=== PATIENT | female | born 1990 ===

== ENCOUNTER 2018-07-11 16:41 | Inpatient (IN) | payer OTHER ==
[~2018-07-11] VITALS: Ht 165.1 cm; Wt 63.7 kg
[2018-07-11] MEDS ORDERED: KETOROLAC TROMETHAMINE INJ 30 MG/ML VIAL ONE (17:24)
[2018-07-11] MEDS ORDERED: HYDROMORPHONE 1 MG/1 ML DISP.SYRIN ONE (17:24)
[2018-07-11] MEDS ORDERED: ONDANSETRON HCL/PF 4 MG/2 ML VIAL ONE (17:24)
[2018-07-11] MEDS ORDERED: KETOROLAC TROMETHAMINE INJ 30 MG/ML VIAL IV ONE (17:30)
[2018-07-11] MEDS ORDERED: HYDROMORPHONE INJ 2 MG/ML DISP.SYRIN IV ONE (17:30)
[2018-07-11] MEDS ORDERED: ONDANSETRON HCL/PF 4 MG/2 ML VIAL IVP ONE (17:30)
[2018-07-11] MEDS ORDERED: IV NS 0.9% 1,000 ML BAG IV ONE (17:30)
--- NOTE | 2018-07-11 17:41 | NUR ---
PT BIB FAMILY C/O RIGHT FLANK PAIN , CHILLS AND FEVER X1 DAY SEEN AT [facility]RGENT [facility]ARE YESTERDAY AND BEEN ADVICED TO GET US OF KIDNEYS. ALERT AND ORIENTED X 4, VERBALLY RESPONSIVE AND ABLE TO MAKE NEEDS KNOWN. ON ROOM AIR, BREATHING EVENLY ANDUNLABORED. IV ACCESS INITIATED. KEPT COMFORTABLE, WILL CONTINUE TO MONITOR ACCORDINGLY.
--- NOTE | 2018-07-11 17:42 | NUR ---
URINE COLLECTED AND SENT TO LAB.
[2018-07-11 17:46] LABS: BASOPHILS % (AUTO) 0.1 % (0.0-2.0); HEMATOCRIT 33 % (33-45); HEMOGLOBIN 10.4 g/dL (11.5-14.8); LYMPHOCYTES # (AUTO) 0.5 /CMM (0.8-4.8); MEAN CORPUSCULAR HGB CONC 31 g/dl (31.0-36.0); MEAN CORPUSCULAR VOLUME 75 fL (82-100); MONOCYTES # (AUTO) 0.9 /CMM (0.1-1.30); MONOCYTES % (AUTO) 5.7 % (2.0-12.0); NEUTROPHILS # (AUTO) 14.5 /CMM (1.8-8.9); NEUTROPHILS % (AUTO) 91.2 % (43.0-81.0); PLATELET COUNT (AUTO) 231 /CMM (150-450); RED BLOOD CELL COUNT(AUTO) 4.42 MIL/uL (4.0-5.2); WHITE BLOOD COUNT (AUTO) 15.9 K/uL (4.3-11.0)
[2018-07-11 17:49] LABS: APPEARANCE,URINE Clear (CLEAR); BILIRUBIN,URINE SMALL (NEGATIVE); BLOOD, URINE Large Ery/uL (NEGATIVE); COLOR,URINE Yellow (YELLOW); KETONES,URINE 15 (NEGATIVE); LEUKOCYTE ESTERASE ,URINE Negative (NEGATIVE); NITRITE, URINE Negative (NEGATIVE); PH,URINE 5.5 (5.0-8.0); PROTEIN,URINE 100 mg/dl (NEGATIVE); UGLUCOSE Negative (NEGATIVE); UROBILINOGEN,URINE 0.2 EU/dL (0.2)
[2018-07-11 18:00] LABS: ALBUMIN 3.3 g/dL (3.4-5.0); BILIRUBIN,DIRECT 0.1 mg/dL (0.0-0.2); BILIRUBIN,TOTAL 0.4 mg/dL (0.2-1.0); CALCIUM, SERUM 8.3 mg/dL (8.5-10.1); CREATININE 0.9 mg/dL (0.6-1.3); POTASSIUM 3.1 mmol/L (3.5-5.1); TOTAL PROTEIN, SERUM 7.7 g/dL (6.4-8.2)
[2018-07-11 18:04] LABS: BACTERIA,URINE None seen /HPF (None Seen); SQUAMOUS EPITHELIAL CELL,UR Few /HPF (None Seen)
--- NOTE | 2018-07-11 19:10 | NUR ---
REPORT REC'D FROM ALIS BARROSO FOR [facility].
[2018-07-11] MEDS ORDERED: IV NS 0.9% 250 ML IV ONE (19:12)
[2018-07-11] MEDS ORDERED: CT SWABBABLE VALVE TRANS SET 1 EA INFUS.SET MC ONE (19:12)
[2018-07-11] MEDS ORDERED: IOHEXOL-300 100 ML VIAL IV ONE (19:12)
--- NOTE | 2018-07-11 19:16 | NUR ---
PT LEFT FOR CT VIA GURNEY.
[2018-07-11] MEDS: CEFTRIAXONE 1GM BAG (ER ONLY) 1 GM/50 ML PIGGYBACK IV ONE ×2 (20:20→20:44)
--- NOTE | 2018-07-11 20:20 | NUR ---
ANTIBIOTIC ORDERED AND PRIMED. WAITING FOR BLOOD CULTURES TO BE DRAWN.
--- NOTE | 2018-07-11 20:30 | NUR ---
MOTOR COACH TOUR OPERATOR IS AT THE BEDSIDE FOR BLOOD CULTURE DRAW.
--- NOTE | 2018-07-11 20:42 | NUR ---
BLOOD CULTURES OBTAINED.
--- NOTE | 2018-07-11 20:56 | NUR ---
CALLING NURSING PLASMA PROCESSING TECHNICIAN FOR MS BED.
--- NOTE | 2018-07-11 20:58 | NUR ---
PELVIC US IN PROGRESS AT THE BEDSIDE.
[2018-07-11] MEDS ORDERED: HYDROMORPHONE INJ 2 MG/ML DISP.SYRIN ONE (21:00)
[2018-07-11] MEDS ORDERED: IV D5/0.45 NACL 1,000 ML IV ONE (21:00)
[2018-07-11] MEDS ORDERED: HYDROMORPHONE 1 MG/1 ML DISP.SYRIN IV ONE (21:00)
[2018-07-11 21:06] LABS: MAGNESIUM 1.9 mg/dL (1.8-2.4); PHOSPHORUS 2.3 mg/dL (2.5-4.9)
--- NOTE | 2018-07-11 21:16 | NUR ---
ABD US PORTION IS FINISHED.
--- NOTE | 2018-07-11 21:17 | NUR ---
PT AMBULATED TO THE BATHROOM WITH A STEADY GAIT.
--- NOTE | 2018-07-11 21:20 | NUR ---
PT RETURNED FROM THE BATHROOM. PT IS CHANGING INTO A GOWN FOR THE PELVIC US.
--- NOTE | 2018-07-11 21:22 | NUR ---
PELVIC US IS IN PROGRESS.
--- NOTE | 2018-07-11 21:25 | NUR ---
CALLING REPORT TO MS NURSE.
--- NOTE | 2018-07-11 21:30 | NUR ---
REPORT GIVEN TO ALIS AVALOS
--- NOTE | 2018-07-11 21:56 | NUR ---
Rayshawn oquendo in [facility] - 07/11/18 at [address] SANTOS FOR ORTHO CONSULT, TRANSFERRED CALL TO DR CHO
[2018-07-11 22:00] VITALS: BP 102/52
--- NOTE | 2018-07-11 22:00 | NUR ---
RN MS ADMISSION NOTES RECEIVED PATIENT VIA GURNEY FROM ER. DX. PARARENAL ABSCESS. PATIENT IS ALERT AND ORIENTED X4. VERBALLY RESPONSIVE, ABLE TO MAKE NEEDS KNOWN. BREATHING EVEN AND UNLABORED. NO SOB NOTED - TOLERATING ROOM AIR. IV ON RIGHT AC G#20 INTACT AND PATENT. CURRENTLY WITH NO COMPLAINTS OF PAIN OR DISCOMFORT. NO FACIAL GRIMACING. EXPLAINED THE PROCESS OF ADMISSION INCLUDING SKIN ASSESSMENT - NO SKIN ISSUES FOUND. BELONGINGS ACCOUNTED FOR. ORIENTED TO THE USE OF UNIT AMENITIES. ALL OTHER NEEDS ATTENDED TO. SAFETY MEASURES IN PLACE. CALL LIGHT WITHIN REACH. WILL CONTINUE TO MONITOR.
--- NOTE | 2018-07-11 23:44 | NUR ---
RN MS NOTES PAGED DR. FAITH FOR ADMISSION ORDERS. ALSO MADE AWARE OF TEMPERATURE 102.5F. PER DR. FAITH, DILAUDID 1MG IV Q3H PRN FOR NOW. ORDER NOTED AND CARRIED OUT.
[2018-07-12 00:05] VITALS: BP 102/52
[2018-07-12] MEDS ORDERED: ZOLPIDEM TARTRATE 5 MG TABLET PO PRN (00:30)
[2018-07-12] MEDS ORDERED: VANCOMYCIN 1 GM in IV D5W 250ml IV ONE (01:00)
[2018-07-12] MEDS ORDERED: VANCOMYCIN 1 GM VIAL ONE (01:35)
[2018-07-12] MEDS ORDERED: IV PREMIX NS +20MEQ KCL 1 L IV ONE (03:30)
[2018-07-12] MEDS: Potassium Chloride 20 MEQ in IV NS 0.9% 1,000 ML IV PRN (03:51)
[2018-07-12] MEDS: ACETAMINOPHEN 325 MG TABLET PO PRN ×2 (04:04→21:27)
[2018-07-12] MEDS ORDERED: PIPERACILLIN /TAZOBACTAM 3.375 G VIAL IV ONE (05:34)
[2018-07-12] MEDS: PIPERACILLIN /TAZOBACTAM 3.375 G in IV D5W 50 ML IV SCH ×4 (05:46→23:40)
[2018-07-12] MEDS: HYDROMORPHONE INJ 2 MG/ML DISP.SYRIN IV PRN ×3 (06:00→17:37)
--- NOTE | 2018-07-12 06:40 | NUR ---
RN MS CLOSING NOTES PATIENT RESTING IN BED. NO ACUTE CHANGES THROUGHOUT SHIFT. BREATHING EVEN AND UNLABORED. NO SOB NOTED. TOLERATING ROOM AIR. WITH COMPLAINTS OF RIGHT FLANK PAIN - MANAGED BY PAIN MEDICATION. IV SITE ON THE RIGHT AC G#20 INTACT AND PATENT WITH NS + K+ 20 MEQ AT 100ML/HR. ALL OTHER NEEDS ATTENDED TO. SAFETY MEASURES IN PLACE. CALL LIGHT WITHIN REACH. WILL ENDORSE TO ONCOMING NURSE FOR [facility].
[2018-07-12] MEDS: PANTOPRAZOLE 40 MG TABLET.DR PO SCH (07:30)
[2018-07-12] MEDS ORDERED: FEE PK DOSING 1 MIN EA MC ONE (07:37)
--- NOTE | 2018-07-12 07:41 | NUR ---
ALIS MS NOTES PATIENT SIGNED CONSENT FORM FOR CT PERCUTANEOUS DRAIN ABSCESS WITH CATH. PLACED IN CHART.
[2018-07-12 08:00] VITALS: BP 97/52
--- NOTE | 2018-07-12 08:05 | NUR ---
MS RN RECEIVED ON BED, AWAKE,ALERT,ORIENTED X4,NOT IN ANY FORM OF DISTRESS, RESPIRATIONS EVEN AND UNLABORED,NO SOB NOTED,LUNGS ARE CLEAR,ABDOMEN SOFT,POSITIVE BOWEL SOUNDS,DENIES PAIN AT THIS TIME, WILL MONITOR PATIENT.
[2018-07-12 08:27] LABS: BASOPHILS % (AUTO) 0.2 % (0.0-2.0); HEMATOCRIT 27 % (33-45); HEMOGLOBIN 8.8 g/dL (11.5-14.8); LYMPHOCYTES # (AUTO) 1.5 /CMM (0.8-4.8); MEAN CORPUSCULAR HGB CONC 32 g/dl (31.0-36.0); MEAN CORPUSCULAR VOLUME 74 fL (82-100); MONOCYTES # (AUTO) 1.3 /CMM (0.1-1.30); MONOCYTES % (AUTO) 8.4 % (2.0-12.0); NEUTROPHILS # (AUTO) 12.2 /CMM (1.8-8.9); NEUTROPHILS % (AUTO) 81.4 % (43.0-81.0); PLATELET COUNT (AUTO) 176 /CMM (150-450); RED BLOOD CELL COUNT(AUTO) 3.65 MIL/uL (4.0-5.2)
[2018-07-12 08:37] LABS: ALBUMIN 2.6 g/dL (3.4-5.0); BILIRUBIN,TOTAL 0.5 mg/dL (0.2-1.0); CALCIUM, SERUM 7.3 mg/dL (8.5-10.1); CREATININE 0.9 mg/dL (0.6-1.3); MAGNESIUM 1.8 mg/dL (1.8-2.4); PHOSPHORUS 2.3 mg/dL (2.5-4.9); POTASSIUM 2.9 mmol/L (3.5-5.1)
[2018-07-12] MEDS: ONDANSETRON HCL/PF 4 MG/2 ML VIAL IVP PRN ×2 (08:47→18:44)
[2018-07-12] MEDS: VANCOMYCIN 1 GM in IV D5W 250 ML IV SCH ×2 (08:54→17:17)
--- NOTE | 2018-07-12 09:00 | NUR ---
MS RN REFUSE BREAKFAST,DUE MEDS GIVEN.
[2018-07-12] MEDS: Potassium Phosphate meq 11 MEQ in IV D5W 100 ML IV SCH ×2 (14:45→19:25)
[2018-07-12 16:00] VITALS: BP 103/58
--- NOTE | 2018-07-12 19:00 | NUR ---
MS RN ON BED, NO DISTRESS, FAMILY AT BEDSIDE.
--- NOTE | 2018-07-12 19:38 | NUR ---
RN MS OPENING NOTES RECEIVED PATIENT IN BED AWAKE, ALERT AND ORIENTED X4. VERBALLY RESPONSIVE, ABLE TO MAKE NEEDS KNOWN. FAMILY AT BEDSIDE. BREATHING EVEN AND UNLABORED. NO SOB NOTED - TOLERATING ROOM AIR. IV ON RIGHT AC G#20 INTACT AND PATENT. CURRENTLY WITH NO COMPLAINTS OF PAIN OR DISCOMFORT. NO FACIAL GRIMACING. SKIN WARM TO TOUCH. ALL OTHER NEEDS ATTENDED TO. SAFETY MEASURES IN PLACE. CALL LIGHT WITHIN REACH. WILL CONTINUE TO MONITOR.
[2018-07-12 21:44] VITALS: BP 126/74
[2018-07-13] MEDS: HYDROMORPHONE INJ 2 MG/ML DISP.SYRIN IV PRN ×5 (00:47→22:12)
[2018-07-13] MEDS: VANCOMYCIN 1 GM in IV D5W 250 ML IV SCH ×2 (01:28→09:00)
[2018-07-13] MEDS: Potassium Chloride 20 MEQ in IV NS 0.9% 1,000 ML IV PRN ×2 (01:29→17:14)
[2018-07-13] MEDS: PIPERACILLIN /TAZOBACTAM 3.375 G in IV D5W 50 ML IV SCH ×4 (05:41→23:36)
[2018-07-13] MEDS: ONDANSETRON HCL/PF 4 MG/2 ML VIAL IVP PRN ×2 (06:28→11:19)
[2018-07-13 07:18] LABS: CALCIUM, SERUM 7.5 mg/dL (8.5-10.1); CREATININE 2.6 mg/dL (0.6-1.3); POTASSIUM 3.6 mmol/L (3.5-5.1)
--- NOTE | 2018-07-13 07:39 | NUR ---
MS RN OPENING NOTES RECEIVED PT LAYING IN BED WITH HOB ELEVATED. PT IS RESTING COMFORTABLY, HOWEVER EASILY ASOUSABLE. PT IS A/O X4, RESPIRATIONS ARE EVEN AND UNLABORED, NOT IN ANY ACUTE DISTRESS NOTED. PUPILS ARE REACTIVE TO LIGHT, BILATERAL HAND CRITICAL CARE PHYSICIAN ARE STRONG AND EQUAL. DENIES ANY CHEST PAIN, SOB, N/V. IV ACCESS TO RAC INTACT, NO INFILTRATION NOTED. DRESSING KEPT CLEAN AND DRY. IV FLUIDS RUNNING AT 100ML/HR, TOLERATING WELL. SAFETY MEASURES ARE IN PLACE. INSTRUCTED PT TO USE CALL LIGHT WHEN ASSISTANCE IS NEEDED, CALL LIGHT IS LEFT WITHIN REACH. WILL CONTINUE TO MONITOR THROUGHOUT SHIFT FOR CONTINUITY OF CARE.
[2018-07-13] MEDS: PANTOPRAZOLE 40 MG TABLET.DR PO SCH (07:56)
[2018-07-13 08:00] VITALS: BP 116/74
--- NOTE | 2018-07-13 08:30 | NUR ---
MS SNELL NOTES-- IV INFILTRATED. NEW PERIPHERAL IV INSERTED TO RIGHT WRIST 22G. PT TOLERATED WELL. CONTINUED IV FLUIDS.
--- NOTE | 2018-07-13 09:10 | NUR ---
MS RN NOTES-- [facility]. ESTELLA HELD, NOTIFIED RE FROM PHARMACY.
[2018-07-13 16:00] VITALS: BP 118/67
[2018-07-13] MEDS: LACTOBACILLUS RHAMNOSUS GG 1 EACH CAP.SPRINK PO SCH (17:15)
--- NOTE | 2018-07-13 18:33 | NUR ---
MS RN CLOSING NOTES ALL DUE MEDS GIVEN, NEEDS MET AND ANTICIPATED. PT IS A/O X4, AFEBRILE. RESPIRATIONS ARE EVEN AND UNLABORED, NOT IN ANY ACUTE DISTRESS NOTED. PT DENIES ANY PAIN AT THIS TIME, NO C/O SOB, N/V. IV SITE IS INTACT, NO INFILTRATION NOTED. DRESSING KEPT CLEAN AND DRY. SAFETY MEASURES ARE IN PLACE. REMINDED PT TO USE CALL LIGHT WHEN ASSISTANCE IS NEEDED, CALL LIGHT IS LEFT WITHIN REACH. WILL ENDORSE TO NEXT SHIFT FOR CONTINUITY OF CARE.
--- NOTE | 2018-07-13 19:45 | NUR ---
MS RN NOTES RECEIVED ON BED SLEEPING,AROUSABLE TO VERBAL STIMULI,BREATHING REGULAR,NOT IN ANY FORM DISTRESS.WITH IVF WITH 20 MEQ INFUSING AT 100ML/HR RATE VIA IV PUMP,SITE PATENT ON RIGHT WRIST.MONITOR FOR PAIN.CALL LIGHT IN REACH,NEEDS ANTICIPATED.
[2018-07-13 20:00] VITALS: BP 108/58
--- NOTE | 2018-07-13 22:12 | NUR ---
MS RN NOTES PAIN MANAGEMENT AWAKE,AMBULATE TO THE RESTROOM.C/O LOWER FLANK PAIN 8/10 ON PAIN SCALE.MEDICATED WITH DILAUDID 1MG IV ORDERED FOR SEVERE PAIN.WILL MONITOR FOR RELIEF.
[2018-07-13] MEDS: ACETAMINOPHEN 325 MG TABLET PO PRN (22:29)
--- NOTE | 2018-07-13 22:29 | NUR ---
MS RN NOTES ORAL TEMP OF 101.1,MEDICATED WITH TYLENOL 650MG PO ORDERED FOR FEVER.
[2018-07-14] MEDS ORDERED: IV PREMIX NS +20MEQ KCL 1 L IV ONE (05:25)
[2018-07-14] MEDS: Potassium Chloride 20 MEQ in IV NS 0.9% 1,000 ML IV PRN (05:34)
[2018-07-14] MEDS: PIPERACILLIN /TAZOBACTAM 3.375 G in IV D5W 50 ML IV SCH ×3 (05:36→17:13)
--- NOTE | 2018-07-14 06:13 | NUR ---
MS RN NOTES SLEPT WITH INTERVALS,ORAL TEMP RECHECK WAS 99.8.IVF WITH 20 MEQ KCL IN PROGRESS VIA IV PUMP,SITE PATENT ON RIGHT WRIST.IV ABX TOLERATED WELL.IN NO ACUTE DISTRESS.WILL ENDORSE TO DAY NURSE FOR [facility]
--- NOTE | 2018-07-14 07:29 | NUR ---
MS RN OPENING NOTES RECEIVED PT LAYING IN BED SLEEPING COMFORTABLY. PT IS EASILY ASOUSABLE, A/O X4. RESPIRATIONS ARE EVEN AND UNLABORED, NOT IN ANY ACUTE DISTRESS NOTED. DENIES ANY CHEST PAIN, SOB, N/V. IV ACCESS TO R WRIST INTACT, NO INFILTRATION NOTED. DRESSING KEPT CLEAN AND DRY. IV FLUIDS RUNNING AT 100ML/HR, TOLERATING WELL. SAFETY MEASURES ARE IN PLACE. INSTRUCTED PT TO USE CALL LIGHT WHEN ASSISTANCE IS NEEDED, CALL LIGHT IS LEFT WITHIN REACH. WILL MONITOR THROUGHOUT SHIFT FOR CONTINUITY OF CARE.
[2018-07-14 07:39] LABS: BASOPHILS % (AUTO) 0.2 % (0.0-2.0); EOSINOPHILS % (AUTO) 0.1 % (0.0-6.0); HEMATOCRIT 26 % (33-45); HEMOGLOBIN 8.3 g/dL (11.5-14.8); LYMPHOCYTES # (AUTO) 1.3 /CMM (0.8-4.8); LYMPHOCYTES % (AUTO) 10.3 % (20.0-44.0); MEAN CORPUSCULAR HGB CONC 32 g/dl (31.0-36.0); MEAN CORPUSCULAR VOLUME 74 fL (82-100); MONOCYTES # (AUTO) 1.2 /CMM (0.1-1.30); MONOCYTES % (AUTO) 9.6 % (2.0-12.0); NEUTROPHILS # (AUTO) 9.7 /CMM (1.8-8.9); NEUTROPHILS % (AUTO) 79.8 % (43.0-81.0); PLATELET COUNT (AUTO) 187 /CMM (150-450); RED BLOOD CELL COUNT(AUTO) 3.48 MIL/uL (4.0-5.2); WHITE BLOOD COUNT (AUTO) 12.1 K/uL (4.3-11.0)
[2018-07-14 07:46] LABS: CALCIUM, SERUM 7.6 mg/dL (8.5-10.1); CREATININE 2.8 mg/dL (0.6-1.3); POTASSIUM 3.6 mmol/L (3.5-5.1)
[2018-07-14] MEDS: PANTOPRAZOLE 40 MG TABLET.DR PO SCH (07:48)
[2018-07-14 08:00] VITALS: BP_SYST 107; BP_SYST 130; BP_DIAS 69; BP_DIAS 82
[2018-07-14] MEDS: LACTOBACILLUS RHAMNOSUS GG 1 EACH CAP.SPRINK PO SCH ×2 (08:21→17:13)
[2018-07-14] MEDS: ACETAMINOPHEN 325 MG TABLET PO PRN ×2 (08:23→15:27)
[2018-07-14] MEDS ORDERED: VANCOMYCIN 1 GM in IV D5W 250 ML IV SCH (09:00)
--- NOTE | 2018-07-14 11:00 | NUR ---
MS RN NOTES-- PT SEEN AND EXAMINED BY DEANNA TEJADA.
[2018-07-14 12:00] VITALS: BP 101/65
[2018-07-14 16:00] VITALS: BP 117/68
[2018-07-14] MEDS: HYDROMORPHONE INJ 2 MG/ML DISP.SYRIN IV PRN ×2 (17:19→21:47)
--- NOTE | 2018-07-14 19:55 | NUR ---
RN OPENING NOTES RECEIVED REPORT FROM [facility] ALIS BLACKWELL. FOUND Pt AWAKE IN BED; FRIEND VISITING AT BEDSIDE. NO S/S OF ACUTE DISTRESS OR SOB NOTED. RESPIRATIONS EVEN AND UNLABORED. Pt IS A/OX4, VERBAL, ABLE TO MAKE NEEDS KNOWN. IV ACCESS ON LWRIST #20G; IVF KCL 20MEQ+0.9%NS @100ML/HR, INFUSING WELL. SAFETY MEASURES IN PLACE. BED LOW, LOCKED, HOB ELEVATED, SIDE RAILS UP, CALL LIGHT & BED SIDE TABLE WITHIN REACH. Pt IS AMB. WILL CONTINUE TO MONITOR Pt's CONDITION AND SAFETY THROUGHOUT THE NIGHT.
[2018-07-14 20:00] VITALS: BP 131/85
[2018-07-14] MEDS: MEROPENEM 1 G in IV NS 0.9% 100 ML IV SCH (20:12)
[2018-07-14] MEDS: DOXYCYCLINE 100 MG in IV NS 0.9% 100 ML IV SCH (21:29)
[2018-07-15] VITALS: BP 130/56
[2018-07-15] MEDS: HYDROMORPHONE INJ 2 MG/ML DISP.SYRIN IV PRN ×4 (04:54→20:51)
--- NOTE | 2018-07-15 04:59 | NUR ---
RN NOTES MRSA SWAB SAMPLE COLLECTED AND PLACED IN FRIDGE FOR LAB TO CREDIT COLLECTIONS MANAGER.
--- NOTE | 2018-07-15 06:28 | NUR ---
RN CLOSING NOTES NO SIGNIFICANT CHANGES IN Pt's CONDITION. Pt IS RESTING IN BED. RESPIRATIONS EVEN AND UNLABORED. REMAINS STABLE PER BASELINE. NO S/S OF ACUTE DISTRESS OR SOB NOTED DURING THE NIGHT. ALL NEEDS MET AND ATTENDED TO. SAFETY MEASURES IN PLACE. WILL ENDORSE TO DAYSHIFT RN FOR Pt's [facility].
[2018-07-15 06:47] LABS: BASOPHILS % (AUTO) 0.2 % (0.0-2.0); EOSINOPHILS % (AUTO) 0.9 % (0.0-6.0); HEMATOCRIT 25 % (33-45); HEMOGLOBIN 7.9 g/dL (11.5-14.8); LYMPHOCYTES # (AUTO) 1.1 /CMM (0.8-4.8); LYMPHOCYTES % (AUTO) 13.8 % (20.0-44.0); MEAN CORPUSCULAR HGB CONC 32 g/dl (31.0-36.0); MEAN CORPUSCULAR VOLUME 75 fL (82-100); MONOCYTES # (AUTO) 0.8 /CMM (0.1-1.30); MONOCYTES % (AUTO) 10.4 % (2.0-12.0); NEUTROPHILS % (AUTO) 74.7 % (43.0-81.0); PLATELET COUNT (AUTO) 231 /CMM (150-450); RED BLOOD CELL COUNT(AUTO) 3.28 MIL/uL (4.0-5.2); WHITE BLOOD COUNT (AUTO) 8.1 K/uL (4.3-11.0)
[2018-07-15 07:05] LABS: CALCIUM, SERUM 7.6 mg/dL (8.5-10.1); CREATININE 2.3 mg/dL (0.6-1.3); POTASSIUM 3.7 mmol/L (3.5-5.1)
--- NOTE | 2018-07-15 07:33 | NUR ---
RN OPENING NOTES PT WAS RECEIVED IN BED AT LOWEST AND LOCKED POSITION WITH SIDE RAILS UP X2, A/O X4, BREATHING EVEN AND UNLABORED ON RA, NO S/S OF PAIN OR DISTRESS NOTED AT THIS TIME, IV IS PATENT AND INTACT, SAFETY PRECAUTIONS IN PLACE, CALL LIGHT WITHIN REACH, WILL MONITOR ACCORDINGLY
[2018-07-15 08:00] VITALS: BP 128/75
[2018-07-15] MEDS: LACTOBACILLUS RHAMNOSUS GG 1 EACH CAP.SPRINK PO SCH ×2 (08:09→16:38)
[2018-07-15] MEDS: Potassium Chloride 20 MEQ in IV NS 0.9% 1,000 ML IV PRN (08:09)
[2018-07-15] MEDS: MEROPENEM 1 G in IV NS 0.9% 100 ML IV SCH ×2 (08:09→21:11)
[2018-07-15] MEDS: PANTOPRAZOLE 40 MG TABLET.DR PO SCH (08:09)
[2018-07-15] MEDS: DOXYCYCLINE 100 MG in IV NS 0.9% 100 ML IV SCH ×2 (09:15→21:50)
[2018-07-15 16:00] VITALS: BP 115/70
--- NOTE | 2018-07-15 18:52 | NUR ---
RN CLOSING NOTES PT IN BED AT LOWEST AND LOCKED POSITION WITH SIDE RAILS UP X2, A/O X4, BREATHING EVEN AND UNLABORED ON RA, NO S/S OF PAIN OR DISTRESS NOTED AT THIS TIME, IV IS PATENT AND INTACT, SAFETY PRECAUTIONS IN PLACE, CALL LIGHT WITHIN REACH, ALL NEEDS WERE ATTENDED, WILL ENDORSE TO CEMENT CAR DUMPER FOR [facility]
--- NOTE | 2018-07-15 19:30 | NUR ---
RN NOTES RECEIVED PATIENT AWAKE, RESTING COMFORTABLY, NO SIGNS OF ACUTE RESPIRATORY DISTRESS NOTED, BREATHING EVEN AND NON LABORED, PERIPHERAL IV ACCESS ON HER RIGHT HAND G#22, ALL SAFETY MEASURES LOWEST AND LOCKED POSITION WITH SIDE RAILS UP X2, A/O X4, BREATHING EVEN AND UNLABORED ON RA, DENIES ANY PAIN OR DISCOMFORT AT THIS TIME, CALL LIGHT WITHIN EASY REACH, WILL MONITOR ACCORDINGLY
[2018-07-15 20:00] VITALS: BP 124/78
[2018-07-16] MEDS: Potassium Chloride 20 MEQ in IV NS 0.9% 1,000 ML IV PRN (03:50)
--- NOTE | 2018-07-16 06:38 | NUR ---
RN NOTES PATIENT AWAKE, RESTING COMFORTABLY, NO SIGNS OF ACUTE RESPIRATORY DISTRESS NOTED, BREATHING EVEN AND NON LABORED, PERIPHERAL IV ACCESS ON HER RIGHT HAND G#22, ALL SAFETY MEASURES LOWEST AND LOCKED POSITION WITH SIDE RAILS UP X2, A/O X4, BREATHING EVEN AND UNLABORED ON RA, DENIES ANY PAIN OR DISCOMFORT AT THIS TIME, CALL LIGHT WITHIN EASY REACH, WILL ENDORSE TO AM NURSE FOR CONTINUITY OF CARE.
[2018-07-16 06:56] LABS: BASOPHILS % (AUTO) 0.2 % (0.0-2.0); EOSINOPHILS % (AUTO) 1.4 % (0.0-6.0); HEMATOCRIT 25 % (33-45); HEMOGLOBIN 8.3 g/dL (11.5-14.8); LYMPHOCYTES # (AUTO) 1.5 /CMM (0.8-4.8); LYMPHOCYTES % (AUTO) 17.3 % (20.0-44.0); MEAN CORPUSCULAR HGB CONC 33 g/dl (31.0-36.0); MEAN CORPUSCULAR VOLUME 74 fL (82-100); MONOCYTES # (AUTO) 0.9 /CMM (0.1-1.30); MONOCYTES % (AUTO) 10.9 % (2.0-12.0); NEUTROPHILS % (AUTO) 70.2 % (43.0-81.0); PLATELET COUNT (AUTO) 255 /CMM (150-450); WHITE BLOOD COUNT (AUTO) 8.5 K/uL (4.3-11.0)
[2018-07-16 07:13] LABS: CALCIUM, SERUM 7.9 mg/dL (8.5-10.1); CREATININE 1.9 mg/dL (0.6-1.3); POTASSIUM 3.9 mmol/L (3.5-5.1)
--- NOTE | 2018-07-16 07:21 | NUR ---
RN OPENING NOTES PT RECEIVED IN BED AT LOWEST AND LOCKED POSITION WITH SIDE RAILS UP X2, A/O X4, BREATHING EVEN AND UNLABORED ON RA, NO S/S OF PAIN OR DISTRESS NOTED AT THIS TIME, IV IS PATENT AND INTACT, SAFETY PRECAUTIONS IN PLACE, CALL LIGHT WITHIN REACH, WILL MONITOR ACCORDINGLY
[2018-07-16] MEDS: MEROPENEM 1 G in IV NS 0.9% 100 ML IV SCH ×2 (08:02→20:38)
[2018-07-16] MEDS: LACTOBACILLUS RHAMNOSUS GG 1 EACH CAP.SPRINK PO SCH ×2 (08:02→16:14)
[2018-07-16 08:31] VITALS: BP 148/81
[2018-07-16] MEDS: DOXYCYCLINE 100 MG in IV NS 0.9% 100 ML IV SCH ×2 (09:00→21:12)
[2018-07-16 13:49] LABS: EOSINOPHILS % (MANUAL) 2 % (0-4); LYMPHOCYTES % (MANUAL) 25 % (16-48); MONOCYTES % (MANUAL) 8 % (0-11.0); NEUTROPHILS % (MANUAL) 65 (42-76)
[2018-07-16 15:41] VITALS: BP 118/75
[2018-07-16] MEDS: HYDROMORPHONE INJ 2 MG/ML DISP.SYRIN IV PRN ×2 (17:36→20:50)
--- NOTE | 2018-07-16 18:23 | NUR ---
RN CLOSING NOTES PT IN BED AT LOWEST AND LOCKED POSITION WITH SIDE RAILS UP X2, A/O X4, BREATHING EVEN AND UNLABORED ON RA, NO S/S OF PAIN OR DISTRESS NOTED AT THIS TIME, IV IS PATENT AND INTACT, SAFETY PRECAUTIONS IN PLACE, CALL LIGHT WITHIN REACH, ALL NEEDS ATTENDED TO, WILL ENDORSE TO WOOD EXPERIMENTAL MECHANIC RN FOR [facility].
--- NOTE | 2018-07-16 19:30 | NUR ---
MS RN NOTES RECEIVED ON BED A/O X4,BREATHING REGULAR,NOT IN ANY FORM OF DISTRESS.NO COMPLAINTS AT THE MOMENT.IVF IB PROGRESS NS WITH 20 MEQ KCL AT 100ML/HR RATE.BRP WITH STANDBY ASSIST.CALL LIGHT IN REACH,NEEDS ANTICIPATED,
[2018-07-16 20:00] VITALS: BP 147/87
--- NOTE | 2018-07-16 20:50 | NUR ---
MS RN NOTES PAIN MANAGEMENT C/O RIGHT FLANK PAIN 9/10 ON PAIN SCALE,MEDICATED WITH DILAUDID 1MG IV ORDERED
[2018-07-16 21:08] VITALS: BP 147/82
[2018-07-17] MEDS: Potassium Chloride 20 MEQ in IV NS 0.9% 1,000 ML IV PRN ×2 (00:12→19:39)
--- NOTE | 2018-07-17 00:12 | NUR ---
MS RN NOTES RECEIVED ON BED SLEEPING,AROUSABLE TO VERBAL STIMULI,A/O X4,NO SOB.IVF NS WITH 20 MEQ KCL INFUSING AT 100ML/HR RATE,SITE PATENT ON RIGHT HAND.ABLE TO AMBULATE TO THE RESTROOM WITH STANDBY ASSIST.CALLLIGHT IN REACH,NEEDS ANTICIPATED.
--- NOTE | 2018-07-17 00:12 | NUR ---
MS RN NOTES PAIN MANAGEMENT ON BED,MOANING,IN PAIN.C/O LOWER BACK PAIN,MEDICATED WITH DILAUDID 1MG IV ORDERED.
[2018-07-17] MEDS: HYDROMORPHONE INJ 2 MG/ML DISP.SYRIN IV PRN ×3 (00:13→20:39)
--- NOTE | 2018-07-17 06:30 | NUR ---
MS RN NOTES ON BED,AWAKE,ORIENTED X4,AMBULATE WITH STEADY GAIT,PAIN TOLERABLE THIS TIME.SALINE LOCK REMAINS PATENT.CALL LIGHT IN REACH,NEEDS ATTENDED.WILL ENDORSE TO DAY NURSE FOR [facility].
[2018-07-17 07:10] LABS: BASOPHILS % (AUTO) 0.4 % (0.0-2.0); EOSINOPHILS % (AUTO) 2.4 % (0.0-6.0); HEMATOCRIT 25 % (33-45); HEMOGLOBIN 7.9 g/dL (11.5-14.8); LYMPHOCYTES # (AUTO) 1.5 /CMM (0.8-4.8); LYMPHOCYTES % (AUTO) 16.5 % (20.0-44.0); MEAN CORPUSCULAR HGB CONC 32 g/dl (31.0-36.0); MEAN CORPUSCULAR VOLUME 75 fL (82-100); MONOCYTES # (AUTO) 0.9 /CMM (0.1-1.30); MONOCYTES % (AUTO) 10.4 % (2.0-12.0); NEUTROPHILS # (AUTO) 6.2 /CMM (1.8-8.9); NEUTROPHILS % (AUTO) 70.3 % (43.0-81.0); PLATELET COUNT (AUTO) 273 /CMM (150-450); RED BLOOD CELL COUNT(AUTO) 3.31 MIL/uL (4.0-5.2); WHITE BLOOD COUNT (AUTO) 8.9 K/uL (4.3-11.0)
--- NOTE | 2018-07-17 07:29 | NUR ---
MS RN OPENING NOTES RECEIVED PATIENT IN STABLE CONDITION. IN NO APPARENT DISTRESS. BEDSIDE RAILS ARE UPX2. BED IS LOCKED AND LOWERED. CALL LIGHT IS WITHIN REACH. IV LINE IS INTACT AND PATENT. WILL CONTINUE TO MONITOR PATIENT.
[2018-07-17 08:04] LABS: BILIRUBIN,TOTAL 0.2 mg/dL (0.2-1.0); CALCIUM, SERUM 7.8 mg/dL (8.5-10.1); CREATININE 1.9 mg/dL (0.6-1.3); MAGNESIUM 1.9 mg/dL (1.8-2.4); PHOSPHORUS 1.8 mg/dL (2.5-4.9); POTASSIUM 4.2 mmol/L (3.5-5.1); TOTAL PROTEIN, SERUM 5.8 g/dL (6.4-8.2)
[2018-07-17 08:18] VITALS: BP 134/71
[2018-07-17] MEDS: MEROPENEM 1 G in IV NS 0.9% 100 ML IV SCH ×2 (08:31→20:27)
[2018-07-17] MEDS: LACTOBACILLUS RHAMNOSUS GG 1 EACH CAP.SPRINK PO SCH ×2 (08:36→16:02)
[2018-07-17] MEDS: DOXYCYCLINE HYCLATE (100 MG) 100 MG TABLET PO SCH ×2 (09:12→20:26)
[2018-07-17] MEDS ORDERED: K PHOS NEUTRAL 250 MG TABLET PO ONE (15:30)
[2018-07-17 15:55] VITALS: BP 160/90
--- NOTE | 2018-07-17 17:07 | NUR ---
CALLED LABORATORY TO FIND OUT WHEN THE CHLAMYDIA RESULTS WILL BE AVAILABLE. LABORATORY STATES THAT THESE RESULTS ARE SENT OUT AND MAY BE AVAILABLE TOMORROW.
--- NOTE | 2018-07-17 18:52 | NUR ---
MS RN CLOSING NOTES PATIENT IS IN STABLE CONDITION. IN NO APPARENT DISTRESS. BEDSIDE RAILS ARE UPX2. BED IS LOCKED AND LOWERED. CALL LIGHT IS WITHIN REACH. IV LINE IS INTACT AND PATENT. WILL ENDORSE CARE TO CRANE OILER NURSE FOR [facility].
--- NOTE | 2018-07-17 19:05 | NUR ---
RN MS OPENING NOTES RECEIVED PATIENT IN BED AWAKE ALERT AND ORIENTED X 4, RESPIRATIONS EVEN AND UNLABORED WITH EQUAL RISE AND FALL OF CHEST, DENIES ANY PAIN OR DISCOMFORT AT THIS TIME, ORIENTED TO STAFF AND CALL LIGHT AND KEPT WITHIN REACH, LOW BED AND LOCKED, IV SITE TO LEFT HAND #22G INTACT AND PATENT, NO REDNESS, NO INFILTRATION PRESENT, FLUIDS OFFERED, ALL NEEDS ATTENDED WILL CONTINUE TO MONITOR.
[2018-07-17 20:00] VITALS: BP 153/85
--- NOTE | 2018-07-17 20:39 | NUR ---
RN MS NOTES PATIENT COMPLAINT OF PAIN TO BACK 01/17 REQUESTING FOR PAIN MEDICATION DILAUDID 1MG OFFERED AGREED DILAUDID 1MG GIVEN ORDERED AND 1MG WASTED WITH ANOTHER RN VS WNL 153/85,53,20,96%RA WILL CONTINUE TO MONITOR FOR EFFECTIVENESS
--- NOTE | 2018-07-18 06:43 | NUR ---
RN MS CLOSING NOTES PATIENT IN BED AWAKE ALERT AND ORIENTED X 4, RESPIRATIONS EVEN AND UNLABORED WITH EQUAL RISE AND FALL OF CHEST, DENIES ANY PAIN OR DISCOMFORT AT THIS TIME, CALL LIGHT AND KEPT WITHIN REACH, LOW BED AND LOCKED, IV SITE TO LEFT HAND #22G INTACT AND PATENT, NO REDNESS, NO INFILTRATION PRESENT, FLUIDS OFFERED, ALL NEEDS ATTENDED WILL CONTINUE TO MONITOR AND ENDORSE TO NEXT SHIFT.
[2018-07-18 06:44] LABS: BASOPHILS # (AUTO) 0.1 /CMM (0.0-0.2); BASOPHILS % (AUTO) 0.7 % (0.0-2.0); HEMATOCRIT 25 % (33-45); LYMPHOCYTES # (AUTO) 1.6 /CMM (0.8-4.8); LYMPHOCYTES % (AUTO) 19.5 % (20.0-44.0); MEAN CORPUSCULAR HGB CONC 33 g/dl (31.0-36.0); MEAN CORPUSCULAR VOLUME 74 fL (82-100); MONOCYTES # (AUTO) 0.8 /CMM (0.1-1.30); MONOCYTES % (AUTO) 10.2 % (2.0-12.0); NEUTROPHILS # (AUTO) 5.4 /CMM (1.8-8.9); NEUTROPHILS % (AUTO) 66.6 % (43.0-81.0); PLATELET COUNT (AUTO) 293 /CMM (150-450); RED BLOOD CELL COUNT(AUTO) 3.34 MIL/uL (4.0-5.2); WHITE BLOOD COUNT (AUTO) 8.2 K/uL (4.3-11.0)
[2018-07-18 06:51] LABS: CALCIUM, SERUM 8.3 mg/dL (8.5-10.1); CREATININE 1.7 mg/dL (0.6-1.3); MAGNESIUM 1.9 mg/dL (1.8-2.4); POTASSIUM 4.2 mmol/L (3.5-5.1)
[2018-07-18 08:00] VITALS: BP 150/86
[2018-07-18] MEDS: LACTOBACILLUS RHAMNOSUS GG 1 EACH CAP.SPRINK PO SCH ×2 (08:31→16:31)
[2018-07-18] MEDS: DOXYCYCLINE HYCLATE (100 MG) 100 MG TABLET PO SCH ×2 (08:31→20:48)
[2018-07-18] MEDS: MEROPENEM 1 G in IV NS 0.9% 100 ML IV SCH ×2 (08:32→20:49)
[2018-07-18] MEDS ORDERED: HYDROCODONE/APAP 5/325MG 1 EACH TABLET PO PRN (14:00)
[2018-07-18] MEDS ORDERED: HYDROCODONE/APAP 10/325MG 1 EA TABLET PO PRN (14:00)
[2018-07-18 16:00] VITALS: BP 162/96
--- NOTE | 2018-07-18 18:30 | NUR ---
MS RN CLOSING NOTES PATIENT IS IN STABLE CONDITION. IN NO APPARENT DISTRESS. BEDSIDE RAILS ARE UPX2. BED IS LOCKED AND LOWERED. CALL LIGHT IS WITHIN REACH. IV LINE IS INTACT AND PATENT. ALL NEEDS WERE MET. WILL ENDORSE CARE TO SUPERINTENDENT CEMETERY NURSE FOR [facility].
--- NOTE | 2018-07-18 19:05 | NUR ---
RN MS OPENING NOTES RECEIVED PATIENT IN BED AWAKE ALERT AND ORIENTED X 4, RESPIRATIONS EVEN AND UNLABORED WITH EQUAL RISE AND FALL OF CHEST, DENIES ANY PAIN OR DISCOMFORT AT THIS TIME, ORIENTED TO STAFF AND CALL LIGHT AND KEPT WITHIN REACH, LOW BED AND LOCKED, RIGHT UPPER ARM MIDLINE, #18 G INTACT AND PATENT, NO REDNESS, NO INFILTRATION PRESENT, DRESSING REMAINS CLEAN DRY AND INTACT, FLUIDS OFFERED AND SNACKS OFFERED , ALL NEEDS ATTENDED WILL CONTINUE TO MONITOR AND ATTEND TO NEEDS. REMAINS COMFORTABLE AT THIS TIME.
[2018-07-18 20:00] VITALS: BP 148/92
--- NOTE | 2018-07-19 06:31 | NUR ---
RN MS CLOSING NOTES PATIENT IN BED AWAKE ALERT AND ORIENTED X 4, RESPIRATIONS EVEN AND UNLABORED WITH EQUAL RISE AND FALL OF CHEST, DENIES ANY PAIN OR DISCOMFORT AT THIS TIME, ORIENTED TO STAFF AND CALL LIGHT AND KEPT WITHIN REACH, LOW BED AND LOCKED, RIGHT UPPER ARM MIDLINE, #18 G INTACT AND PATENT, NO REDNESS, NO INFILTRATION PRESENT, DRESSING REMAINS CLEAN DRY AND INTACT, FLUIDS OFFERED AND SNACKS OFFERED , ALL NEEDS ATTENDED WILL CONTINUE TO MONITOR AND ATTEND TO NEEDS. REMAINS COMFORTABLE AT THIS TIME WILL ENDORSE TO NEXT SHIFT.
--- NOTE | 2018-07-19 07:30 | NUR ---
MS/RN OPENING NOTE THE PATIENT IS ALERT AND ORIENTED X4. IN ROOM AIR AND DENIES SOB. RESPIRATION REGULAR AND UNLABORED. DENIES PAIN. PATIENT IN NO APPARENT DISTRESS. RIGHT UPPER ARM G 18 MIDLINE PATENT AND SALINE LOCKED. BED LOW AND LOCKED. SIDE RAILS UP X3. CALL LIGHT WITHIN REACH. WILL CONTINUE TO MONITOR.
[2018-07-19 08:00] VITALS: BP 148/86
[2018-07-19] MEDS: DOXYCYCLINE HYCLATE (100 MG) 100 MG TABLET PO SCH (08:26)
[2018-07-19] MEDS: LACTOBACILLUS RHAMNOSUS GG 1 EACH CAP.SPRINK PO SCH (08:26)
[2018-07-19] MEDS: MEROPENEM 1 G in IV NS 0.9% 100 ML IV SCH (08:29)
[2018-07-19] MEDS ORDERED: LACT1TAB25 PO (08:47)
[2018-07-19] MEDS ORDERED: DOXY100T2 PO (08:47)
[2018-07-19] MEDS ORDERED: ERTA1VIA4 IV (08:47)
--- NOTE | 2018-07-19 13:59 | NUR ---
MS/RN NOTE THE PATIENT ALERT AND ORIENTED X4. DENIES PAIN. IN ROOM AIR AND DENIES SOB. RESPIRATION IS REGULAR AND UNLABORED. RIGHT UPPER ARM G 18 MIDLINE PATENT AND SALINE LOCKED. THE PATIENT IS IN NO APPARENT DISTRESS. OFFERED VACCINATIONS BUT THE PATIENT REFUSED DESPITE EXPLAINING RISKS AND BENEFITS. DISCHARGE EDUCATION PROVIDED AND THE PATIENT VERBALIZED UNDERSTANDING. MEDICATION PRESCRIPTION GIVEN TO THE PATIENT AND THE COPY IS KEPT IN CHART. THE PATIENT IS GETTING PICKED UP BY SISTER. THE PATIENT LEAVING THE HOSPITAL IN PRIVATE CAR WITH SISTER. THE PATIENT LEAVING IN STABLE CONDITION.
== END 2018-07-19 14:00 | disposition home health service (06) | DRG 871 ==
LOC: ER 16:45 → MED 21:01 → TELE 07-12 21:06 → MED 07-12 21:18
PROVIDERS: ADMIT Internal Medicine; ATTEND Internal Medicine
PROC: B546ZZA Ultrasonography of Right Subclavian Vein, Guidance (ICD-10-PCS; principal; 2018-07-18)
PROC: 05H533Z Insertion of Infusion Device into Right Subclavian Vein, Percutaneous Approach (ICD-10-PCS; principal; 2018-07-18)
DX: A41.9 Sepsis, unspecified organism (principal); E43 Unspecified severe protein-calorie malnutrition; N15.1 Renal and perinephric abscess; N17.0 Acute kidney failure with tubular necrosis; N12 Tubulo-interstitial nephritis, not specified as acute or chronic; R65.20 Severe sepsis without septic shock; D50.9 Iron deficiency anemia, unspecified; E87.6 Hypokalemia; E83.39 Other disorders of phosphorus metabolism; N92.0 Excessive and frequent menstruation with regular cycle; R73.9 Hyperglycemia, unspecified; E88.09 Other disorders of plasma-protein metabolism, not elsewhere classified; Z68.23 Body mass index [BMI] 23.0-23.9, adult; N94.6 Dysmenorrhea, unspecified; D25.0 Submucous leiomyoma of uterus
CPT/HCPCS: 36415; 36569; 71045-TC; 76770-TC; 76856-TC; 80048-TC; 80053-TC; 80074; 80076-TC; 80202-TC; 81000-TC; 83605-TC; 83690-TC; 83735-TC; 84100-TC; 84703-TC; 85025-TC; 86593; 87040-TC; 87081-TC; 87086-TC; 87400; 87491; 87591; 87806; C1751; G0378; J1170; J1885; J2185; J2405; J2543; J3370; J3480; J3490; J7030; J7050; J7060; Q9967